=== PATIENT | female | born 1960 | race African-American/Black ===

== ENCOUNTER 2021-07-31 15:40 | Emergency (ER) | payer OTHER ==
[~2021-07-31] VITALS: Ht 165.1 cm; Wt 69.0 kg
[2021-07-31] MEDS ORDERED: ATORVASTATIN CALCIUM 40MG TABLET PO SCH (16:30)
[2021-07-31] MEDS ORDERED: ASPIRIN 325MG EC TABLET PO ONE (16:30)
[2021-07-31] MEDS ORDERED: IOHEXOL-350 100 ML BOTTLE ONE ×2 (16:37→20:52)
[2021-07-31 16:48] LABS: BASOPHILS % 0.6 % (0.0-2.0); EOSINOPHILS % 3.4 % (0.0-5.0); HEMATOCRIT. 36.7 % (36.0-48.0); HEMOGLOBIN. 11.5 g/dL (12.0-16.0); LYMPHOCYTES % 43.9 % (20.0-50.0); MEAN CORPUSCULAR HEMOGLOBIN 21.3 pg (28.0-32.0); MONOCYTES % 6.2 % (2.0-8.0); NEUTROPHILS % 45.9 % (40.0-76.0); PLATELET 224 x1000/uL (130-400); RED BLOOD CELL COUNT 5.39 mill/uL (4.2-5.4); RED CELL DISTRIBUTION WIDTH 16.5 % (11.6-14.6)
[2021-07-31 16:53] LABS: CHLORIDE 102 mEq/L (98-107)
[2021-07-31 16:57] LABS: ETHANOL BLOOD < 10 mg/dL
[2021-07-31 17:13] LABS: PLATELET ESTIMATE NORMAL
[2021-07-31 22:31] VITALS: BP 128/68
== END 2021-07-31 23:06 | disposition short-term general hospital (02) ==
LOC: ER 15:40
DX: R42 Dizziness and giddiness (principal); R20.0 Anesthesia of skin; J45.909 Unspecified asthma, uncomplicated; H54.62 Unqualified visual loss, left eye, normal vision right eye
CPT/HCPCS: 36415; 70450; 70496; 70498; 71045; 80053; 80320; 82962; 83605; 83690; 83880; 84484; 85025; 87040; 87426; 93005; 99285; Q9967; G0480